=== PATIENT | female | born 1945 | race Caucasian/White ===

== ENCOUNTER → 2017-08-20 | Outpatient (CLI) | payer MEDICARE, OTHER ==
[~2017-08-20] MED LIST: AMLO-342 PO; ASCO-262 PO; ASPI-586 PO; ASPI325T32 PO; CALC-80 PO; CALC-823 PO; CALC1TAB88 PO; CARV12.53 PO; CHOL10003 PO; CHOL20002 PO; FISH OIL 1,2001 EAC1 PO; FLD5TCR PO; HCT25T PO; HYDR-3816 PO; HYDR-3820 PO; HYDR1TAB PO; IRON150C3 PO; LVT.088T PO; METF500T4 PO; MULT-608 PO; PANT40TA PO; POTA10TA10 PO; PRAV40TA2 PO; SIMV20TA3 PO; TELM80TA3 PO; TOLTA4 PO; TRAM-42 PO; URSO300C3 PO; ZOLP5TAB6 PO; [UNRECOGNIZED DRUG - CODE] PO; [UNRECOGNIZED DRUG - OTHER] PO
--- NOTE | 2017-08-23 15:29 | Diagnostic Imaging Report ---
EXAMINATION: Bilateral screening mammogram 2D views with tomosynthesis. The current study was also evaluated with a Computer Aided Detection (CAD) system. INDICATION: Screening. PERSONAL HISTORY: No current complaints stated on the questionnaire. COMPARISON: 08/18/2016. FINDINGS: The breasts are composed of scattered fibroglandular densities. There are scattered benign-appearing calcifications. Allowing for technique and positional differences, no suspicious change is seen. IMPRESSION: No significant change. ACR BI-RADS Category 2: Benign findings. Result letter will be mailed to the patient. Note: At least 10% of breast cancer is not imaged by mammography. Dictated by: Dictated on workstation # [id number]
== END ==
LOC: RAD 09:42
PROVIDERS: ATTEND Internal Medicine
DX: Z12.31 Encounter for screening mammogram for malignant neoplasm of breast (principal)
CPT/HCPCS: 77067

== ENCOUNTER → 2017-11-30 | Outpatient (CLI) | payer MEDICARE, OTHER | LOC: CARD 11:30 | PROVIDERS: ATTEND Internal Medicine Cardiovascular Disease | DX: I08.0 Rheumatic disorders of both mitral and aortic valves (principal); I65.23 Occlusion and stenosis of bilateral carotid arteries; R07.9 Chest pain, unspecified; I10 Essential (primary) hypertension; E78.2 Mixed hyperlipidemia | CPT/HCPCS: 93306 ==

== ENCOUNTER → 2018-08-30 | Outpatient (CLI) | payer MEDICARE, OTHER ==
[~2018-08-30] MED LIST changes: -AMLO-342 PO; +HYDR-34 PO; -HYDR-3816 PO; +METF-397 PO; -METF500T4 PO; +[UNRECOGNIZED DRUG - CODE] PO
--- NOTE | 2018-08-30 12:58 | Diagnostic Imaging Report ---
The current study was also evaluated with a Computer Aided Detection (CAD) system. 3-D tomosynthesis was also performed and reviewed. INDICATION: Routine screening. Comparison is made with prior mammogram from 08/20/2017 and 08/18/2016. 2-D and 3-D bilateral screening mammography was performed with CAD. FINDINGS: Scattered fibroglandular densities are identified bilaterally. The parenchymal pattern is stable. Slight asymmetry in breast size, left smaller is similar to prior. No mass or malignant-appearing microcalcifications are seen. The axillae are unremarkable. IMPRESSION: No mammographic features suspicious for malignancy are identified. ACR BI-RADS Category 1: Negative. Result letter will be mailed to the patient. Note: At least 10% of breast cancer is not imaged by mammography. Dictated by: Dictated on workstation # [id number]
== END ==
LOC: RAD 09:19
PROVIDERS: ATTEND Internal Medicine
DX: Z12.31 Encounter for screening mammogram for malignant neoplasm of breast (principal)
CPT/HCPCS: 77067

== ENCOUNTER → 2018-09-14 | Outpatient (CLI) | payer MEDICARE, OTHER ==
[~2018-09-14] VITALS: Ht 165.1 cm; Wt 95.3 kg
[~2018-09-14] MED LIST changes: +CATHETER FLUSH 10 ML SYR IV PRN
[2018-09-14 09:21] VITALS: BP 175/84
--- NOTE | 2018-09-14 17:53 | STRESS TEST ---
DATE OF SERVICE: 09/14/2018 EXERCISE MYOVIEW STRESS TEST REPORT REFERRING PHYSICIAN: Ivania Bacon DO Baseline heart rate is 75. Baseline blood pressure 150/80. Baseline EKG is sinus rhythm with occasional PVCs. In summary, the patient was injected with 10.61 mCi of technetium-99 Myoview and the resting images were obtained. Then, the patient started exercising with a baseline heart rate, blood pressure and EKG mentioned above. She was able to exercise for 4 minutes 25 seconds on standard Darnell protocol. With peak exercise level, occasional PVCs were noted. Nondiagnostic EKG changes were noted. Blood pressure at peak was 230/80. During recovery, heart rate and blood pressure returned to baseline. Continue to have occasional PVCs throughout test. The resting and stress images were reviewed and compared in the short axis, horizontal long axis, and vertical long axis views. Review of the images showed good radiotracer uptake with no significant ischemia or infarction. SSS is 1, SDS 1, TID value 1.03. On the gated images, the left ventricle appeared to be in normal size with normal contractility. Calculated ejection fraction 57%. CONCLUSION: 1. Fair exercise tolerance, a total of 4 minutes 25 seconds on standard Darnell protocol, total of 6.2 METS achieving 94% of maximum expected heart rate. 2. Severe hypertensive response to exercise, returned to baseline during recovery. 3. Frequent PVCs noted during test, at rest and with peak stress level. 4. Minimal nondiagnostic EKG changes with exercise, returned to baseline during recovery. 5. No ischemia or infarction on SPECT images with breast attenuation. 6. Normal left ventricular size with normal contractility. Calculated ejection fraction 57%. Job ID: [id number] DocumentID: [id number] Dictated Date: 09/14/2018 14:44:17 Paving Block Cutter Date: 09/14/2018 17:53:07 Dictated By: TYREE GRIMES MD
== END ==
LOC: CARD 07:12
PROVIDERS: ATTEND Physician Assistant
DX: I35.1 Nonrheumatic aortic (valve) insufficiency (principal); I10 Essential (primary) hypertension; K21.9 Gastro-esophageal reflux disease without esophagitis
CPT/HCPCS: 78452; 93017

== ENCOUNTER → 2019-09-05 | Outpatient (CLI) | payer MEDICARE, OTHER ==
[~2019-09-05] MED LIST changes: -CATHETER FLUSH 10 ML SYR IV PRN
--- NOTE | 2019-09-05 13:52 | Diagnostic Imaging Report ---
INDICATION: Routine screening. COMPARISON: Comparison is made with prior mammograms from 08/30/2018 and 08/20/2017. TECHNIQUE: 2-D and 3-D bilateral screening mammography was performed. The current study was also evaluated with a Computer Aided Detection (CAD) system. 3-D tomosynthesis was also performed and reviewed. FINDINGS: Scattered fibroglandular densities are identified bilaterally. The parenchymal pattern is stable. No dominant mass or malignant-appearing microcalcifications are seen. The axillae are unremarkable. IMPRESSION: No mammographic features suspicious for malignancy are identified. ACR BI-RADS Category 1: Negative. Result letter will be mailed to the patient. Note: At least 10% of breast cancer is not imaged by mammography. Dictated by: Dictated on workstation # [id number]
== END ==
LOC: RAD 12:46
PROVIDERS: ATTEND Internal Medicine
DX: Z12.31 Encounter for screening mammogram for malignant neoplasm of breast (principal)
CPT/HCPCS: 77067

== ENCOUNTER → 2019-10-05 | Outpatient (CLI) | payer MEDICARE, OTHER | LOC: CARD 10:48 | PROVIDERS: ATTEND Physician Assistant | DX: I08.3 Combined rheumatic disorders of mitral, aortic and tricuspid valves (principal); I65.29 Occlusion and stenosis of unspecified carotid artery; K21.9 Gastro-esophageal reflux disease without esophagitis; I10 Essential (primary) hypertension | CPT/HCPCS: 93306 ==

== ENCOUNTER → 2020-09-10 | Outpatient (CLI) | payer MEDICARE, OTHER ==
[~2020-09-10] MED LIST changes: +ACHYD1T PO; -HYDR-3820 PO
--- NOTE | 2020-09-10 13:18 | Diagnostic Imaging Report ---
INDICATION: Routine screening. COMPARISON: 09/05/2019 and 08/30/2018. TECHNIQUE: 2D and 3D bilateral screening mammography was performed with CAD. FINDINGS: Scattered fibroglandular densities are identified bilaterally. Breast size asymmetry is again noted with the left being smaller. No mass or malignant appearing microcalcifications are seen. The axillae are unremarkable. IMPRESSION: No mammographic features suspicious for malignancy are identified. ACR BI-RADS Category 1: Negative. Result letter will be mailed to the patient. Note: At least 10% of breast cancer is not imaged by mammography. Dictated by: Dictated on workstation # [id number]
== END ==
LOC: RAD 08:30
PROVIDERS: ATTEND Internal Medicine
DX: Z12.31 Encounter for screening mammogram for malignant neoplasm of breast (principal)
CPT/HCPCS: 77063; 77067

== ENCOUNTER → 2021-09-11 | Outpatient (CLI) | payer MEDICARE, OTHER ==
--- NOTE | 2021-09-11 09:54 | Diagnostic Imaging Report ---
INDICATION: Routine screening. COMPARISON is made with prior mammograms from 09/10/2020 and 09/05/2019. 2-D and 3-D bilateral screening mammography was performed with CAD. Scattered fibroglandular densities are identified bilaterally. There continues to be some asymmetry in breast size, left smaller. This is similar to prior study. No mass or malignant-appearing microcalcifications are seen. Axillae are unremarkable. IMPRESSION: BI-RADS Category 2 No mammographic features suspicious for malignancy are identified. ACR BI-RADS Category 2: Benign findings. Result letter will be mailed to the patient. Note: At least 10% of breast cancer is not imaged by mammography. Dictated by: Dictated on workstation # [id number]
== END ==
LOC: RAD 08:36
PROVIDERS: ATTEND Internal Medicine
DX: Z12.31 Encounter for screening mammogram for malignant neoplasm of breast (principal)
CPT/HCPCS: 77063; 77067

== ENCOUNTER → 2021-09-11 | Outpatient (CLI) | payer MEDICARE, OTHER ==
[~2021-09-11] MED LIST changes: +CATHETER FLUSH 10 ML SYR IV PRN; +HOLD METFORMIN - RECEIVED CONTRAST 20 ML VIAL IV SCH; +IOHEXOL 350 MG/ML 100 ML (OMNIPAQUE 350) VIAL IV ONE; +NS 100 ML (IVPB) BAG IV ONE
[2021-09-11 09:17] LABS: CREATININE SERUM 0.83 MG/DL (0.60-1.30)
--- NOTE | 2021-09-11 10:02 | Diagnostic Imaging Report ---
EXAMINATION: CT angiography of the chest. TECHNIQUE: Contrast enhanced thin section helical images were obtained through the chest with intravenous contrast timed for the optimal opacification of the arterial structures per CTA protocol. Post-processing, reconstructions and interpretation of angiographic images of the vessels was performed. 3D MIP reconstructions were performed and reviewed. All CT scans use one or more of the following dose optimizing techniques: automated exposure control, MA and/or KvP adjustment based on a patient size and exam type, or iterative reconstruction. HISTORY: Chest pain COMPARISON: None available. FINDINGS: There is no pulmonary embolism. There is no edema or pneumonia. No pleural effusion. No pneumothorax. No suspicious nodules. There is no axillary or supraclavicular lymphadenopathy. There is no mediastinal lymphadenopathy. There are mild aortic valvular calcifications. Heart size is normal. There are mild coronary artery calcifications. No pericardial effusion. Aorta is normal in caliber. Limited views of the upper abdomen are unremarkable. There are no suspicious osseus lesions. IMPRESSION: 1. No pulmonary embolism. Dictated by: Dictated on workstation # [id number]
== END ==
LOC: RAD 09:45
PROVIDERS: ATTEND Internal Medicine Cardiovascular Disease
DX: I25.10 Atherosclerotic heart disease of native coronary artery without angina pectoris (principal); I10 Essential (primary) hypertension
CPT/HCPCS: 36415; 71275; 82565; 84520

== ENCOUNTER → 2021-09-24 | Outpatient (CLI) | payer MEDICARE, OTHER ==
[~2021-09-24] MED LIST changes: -HOLD METFORMIN - RECEIVED CONTRAST 20 ML VIAL IV SCH; -IOHEXOL 350 MG/ML 100 ML (OMNIPAQUE 350) VIAL IV ONE; -NS 100 ML (IVPB) BAG IV ONE
[2021-09-24 13:31] VITALS: BP 175/79
--- NOTE | 2021-09-24 15:22 | Cardiology Stress Test Report ---
Stress Test Report Date of Procedure/Referring: Date of Procedure: Sep 24, 2021 PCP Tyree Capps MD Admitting Physician Ivania Bacon DO Indications: HTN Baseline Heart Rate: 71 Baseline Blood Pressure: Blood Pressure Systolic: 175 Blood Pressure Diastolic: 79 Vital Signs Date Time Temp Pulse Resp B/P (MAP) Pulse Ox O2 Delivery O2 Flow Rate FiO2 09/24/21 13:31 71 18 175/79 (111) 97 Room Air Baseline Vital Signs Vital Signs Date Time Temp Pulse Resp B/P (MAP) Pulse Ox O2 Delivery O2 Flow Rate FiO2 09/24/21 13:31 71 18 175/79 (111) 97 Room Air Baseline EKG: Baseline EKG: NSR Summary: After explaining the procedure and details to the patient, she signed the consent and was brought to the stress nuclear laboratory. Patient exercised on standard Darnell protocol, EKG, heart rate and blood pressure were monitored continuously, resting and stress doses of radio tracer were injected, imaging was acquired and reviewed in the short axis, horizontal long axis and vertical long axis views Patient was able to exercise for a total of 3.30 minutes on Darnell protocol, METs 5.2 Maximum heart rate 146 Maximum blood pressure 256/58 Stress EKG, Minimal nondiagnostic changes Recovery EKG, Return to baseline TID: 1.14 SSS: 0 SDS: 0 EF: 50 Conclusion: 1. Fair exercise tolerance for 3 minutes 30 seconds on standard Darnell protocol, 5.2 METS achieving 100% of maximal expected heart rate 2. Severe hypertensive response to exercise return to baseline during recovery 3. Minimal nondiagnostic EKG changes with exercise with frequent PVCs and ventricular couplet noted during stress test, was present at the preexercise EKG. 4. Breast attenuation with typical female pattern no significant ischemia or infarction on SPECT images 5. Normal left ventricular size, EF 50% TYREE CAPPS MD Sep 24, 2021 15:22
== END ==
LOC: CARD 11:00
PROVIDERS: ATTEND Internal Medicine Cardiovascular Disease
DX: I25.10 Atherosclerotic heart disease of native coronary artery without angina pectoris (principal); I11.9 Hypertensive heart disease without heart failure; I08.0 Rheumatic disorders of both mitral and aortic valves
CPT/HCPCS: 78452; 93017; 93306; A9502

== ENCOUNTER → 2022-09-15 | Outpatient (CLI) | payer MEDICARE, OTHER ==
[~2022-09-15] MED LIST changes: -CATHETER FLUSH 10 ML SYR IV PRN; +[UNRECOGNIZED DRUG - CODE] PO; -[UNRECOGNIZED DRUG - CODE] PO
--- NOTE | 2022-09-15 09:44 | Diagnostic Imaging Report ---
INDICATION: Postmenopausal state COMPARISON: 05/25/2007 FINDINGS: AP Spine L1-L4: [BMD (g/cm2): 1.108] [T-Score: -0.8] [Z-Score: 0.1] [BMD Previous: 1.172] [BMD % Change: -5.5] LT Hip Neck: [BMD (g/cm2): 0.928] [T-Score: -0.8] [Z-Score: 0.6] LT Hip Total: [BMD (g/cm2):0.999] [T-Score:-0.1] [Z-Score: 1.0] [BMD Previous: 1.101] [BMD % Change: -9.3] RT Hip Neck: [BMD (g/cm2):0.861] [T-Score:-1.3] [Z-Score:0.1] RT Hip Total: [BMD (g/cm2):0.929] [T-score:-0.6] [Z-Score:0.5] [BMD Previous:1.028] [BMD % Change:-9.6] *Indicates significant change from prior examination based on 95% confidence level. World Health Organization criteria for BMD interpretation classify patients as Normal (T-score at or above -1.0), Osteopenic (T-score between -1.0 and -2.5) or Osteoporotic (T-score at or below -2.5). LIMITATIONS AND MODIFICATION: None. FRACTURE RISK (FRAX SCORE): The ten year probability of (%): Major Osteoporotic Fracture: [9.9] Hip Fracture: [1.7] IMPRESSION: 1. Osteopenia (Low bone mass). 2. Bone mineral density has decreased by a statistically significant amount, as detailed above. 3. See below National Osteoporosis Foundation guidelines on when to potentially initiate pharmacologic therapy. Based on the National Osteoporosis Foundation Guidelines, pharmacologic treatment should be initiated in any of the following, unless clinical conditions suggest otherwise: * Any patient with prior fragility fracture of the hip or vertebrae. A spine fracture indicates 5X risk for subsequent spine fracture and 2X risk for subsequent hip fracture. * Osteoporosis (T-score <-2.5). * Postmenopausal women and men age 50 and older with low bone mass/osteopenia (T-score between -1.0 and -2.5) by DXA and 10-year major osteoporotic fracture greater than 20% or a 10-year probability of hip fracture greater than 3%. These fracture risks are supplied above in the FRAX score, if applicable. * Clinician judgement and/or patient preferences may indicate treatment for people with 10-year fracture probabilities above or below these levels. Dictated by: Dictated on workstation # [id number]
--- NOTE | 2022-09-15 13:39 | Diagnostic Imaging Report ---
Indication: Routine screening. Comparison is made with prior mammogram from 09/11/2021 and 09/10/2020. 2-D and 3-D bilateral screening mammography was performed with CAD. CAD is utilized. The current study was also evaluated with a Computer Aided Detection (CAD) system. Scattered fibroglandular densities are identified bilaterally. Breast size asymmetry is again noted, left being smaller. No mass or malignant-appearing microcalcifications are seen. Axillae are unremarkable. IMPRESSION: BI-RADS Category 2 No mammographic features suspicious for malignancy are identified. ACR BI-RADS Category 2: Benign findings. Result letter will be mailed to the patient. Note: At least 10% of breast cancer is not imaged by mammography. Dictated by: Dictated on workstation # [id number]
== END ==
LOC: RAD 08:30
PROVIDERS: ATTEND Internal Medicine
DX: Z12.31 Encounter for screening mammogram for malignant neoplasm of breast (principal); M80.08XA Age-related osteoporosis with current pathological fracture, vertebra(e), initial encounter for fracture; M85.80 Other specified disorders of bone density and structure, unspecified site; Z78.0 Asymptomatic menopausal state
CPT/HCPCS: 77063; 77067; 77080

== ENCOUNTER → 2022-10-28 | Outpatient (CLI) | payer MEDICARE, OTHER | LOC: CARD 14:38 | PROVIDERS: ATTEND Physician Assistant | DX: I08.0 Rheumatic disorders of both mitral and aortic valves (principal) | CPT/HCPCS: 93306 ==

== ENCOUNTER → 2023-08-23 | Outpatient (CLI) | payer MEDICARE, OTHER ==
[~2023-08-23] MED LIST changes: +CATHETER FLUSH 10 ML SYR IVP PRN; +REGADENOSON 0.4 MG/5 ML SYR IV ONE
[2023-08-23 09:55] VITALS: BP 192/70
--- NOTE | 2023-08-26 07:26 | Cardiology Stress Test Report ---
Stress Test Report Date of Procedure/Referring: Date of Procedure: Aug 23, 2023 PCP Ivania Bacon DO Admitting Physician Admitting Physician: Attending Physician: Astrid Capps MD Baseline Heart Rate: 60 Baseline Blood Pressure: Blood Pressure Systolic: 192 Blood Pressure Diastolic: 70 Baseline Vitals Vital Signs Date Time Temp Pulse Resp B/P (MAP) Pulse Ox O2 Delivery O2 Flow Rate FiO2 08/23/23 09:55 66 192/70 (110) Baseline EKG: Baseline EKG: NSR Summary After explaining the procedure to the patient, she signed a consent and then brought to the stress nuclear laboratory. Patient received 0.4 mg Lexiscan for stress test, ECG, heart rate and blood pressure were monitored continuously. Resting and stress dose of radio tracer were injected, imaging was acquired and reviewed in short axis, horizontal long axis and vertical long axis views. TID: 1.18 SSS: 1 SDS: 1 EF: 59 Patient tolerated Lexiscan well Baseline hypertension persisted during test Breast attenuation with typical female pattern, no significant ischemia or i nfarction on SPECT images Normal left ventricular size, ejection fraction 59% Copy Copies To 1: IVAINA BACON BASHAR J MD Aug 26, 2023 07:26
== END ==
LOC: CARD 08:04
PROVIDERS: ATTEND Internal Medicine Cardiovascular Disease
DX: I10 Essential (primary) hypertension (principal); I25.10 Atherosclerotic heart disease of native coronary artery without angina pectoris
CPT/HCPCS: 78452; 93017; A9502

== ENCOUNTER → 2023-09-30 | Outpatient (CLI) | payer MEDICARE, OTHER ==
[~2023-09-30] MED LIST changes: -CATHETER FLUSH 10 ML SYR IVP PRN; -REGADENOSON 0.4 MG/5 ML SYR IV ONE
--- NOTE | 2023-09-30 12:35 | Diagnostic Imaging Report ---
Indication: Routine screening. Comparison is made with prior mammograms 09/15/2022 and 09/11/2021. 2-D and 3-D bilateral screening mammography was performed with CAD. Both breasts are heterogeneously dense, limiting the sensitivity of mammography. The overall breast parenchymal pattern is stable. Breast asymmetry is again noted, left breast being smaller. No mass or malignant-appearing microcalcifications are identified. Axillae are unremarkable. IMPRESSION: BI-RADS Category 2 No mammographic features suspicious for malignancy are identified. ACR BI-RADS Category 2: Benign findings. Result letter will be mailed to the patient. Note: At least 10% of breast cancer is not imaged by mammography. Dictated by: Dictated on workstation # [id number]
== END ==
LOC: RAD 09:15
PROVIDERS: ATTEND Internal Medicine
DX: Z12.31 Encounter for screening mammogram for malignant neoplasm of breast (principal)
CPT/HCPCS: 77063; 77067